=== PATIENT | male | born 1950 | race Caucasian/White ===

== ENCOUNTER 2021-07-30 18:10 | Emergency (ER) | payer MEDICARE ==
[2021-07-30] MEDS ORDERED: Bacitracin Oint 1 GM U/D Packet TOP ONE (18:27)
[2021-07-30] MEDS ORDERED: Sodium Chloride 0.9% 10 ML Syringe FLUSH PRN (19:14)
[2021-07-30] MEDS ORDERED: ceFAZolin 2 GM in Premix Bag 1 BAG IV ONE (19:38)
--- NOTE | 2021-07-30 20:23 | EDM.PDOC ---
ED HPI GENERAL MEDICAL PROBLEM - General Chief Complaint: Laceration Stated Complaint: L HAND LACERATION Time Seen by Provider: 07/30/21 18:27 Source of Information: Reports: Patient History Limitations: Reports: No Limitations - History of Present Illness INITIAL COMMENTS - FREE TEXT/NARRATIVE: Stefano is a 70-year-old male presenting to the ED for evaluation of a deep laceration to the dorsal left thumb starting at the PIP and extending to the anatomic snuffbox. The patient was in the process of trying to cut the throat of a deer that he had shot and apparently the deer was not yet and reared up causing can to lacerate the thumb instead of the neck of the deer. Patient is up-to-date with his tetanus with the last being given in May 2019. He is on an aspirin a day as well as carvedilol, Crestor and lisinopril. He is unable to extend the thumb likely due to a laceration through the extensor tendon. Denies any distal numbness and has good capillary refill. Bleeding is currently controlled. - Related Data Allergies Allergy/AdvReac Type Severity Reaction Status Date / Time No Known Allergies Allergy Verified 07/30/21 19:37 Home Meds: Home Meds *Carvedilol 1 tab PO DAILY 07/30/21 [History] *Crestor 1 tab PO DAILY 07/30/21 [History] *Risperdal 1 tab PO DAILY 07/30/21 [History] Aspirin [Ecotrin EC] 81 mg PO DAILY 07/30/21 [History] Past Medical History HEENT History: Reports: Impaired Vision Cardiovascular History: Reports: High Cholesterol, Hypertension Hematologic History: Reports: Anticoagulation Therapy Social & Family History - Tobacco Use Tobacco Use Status *Q: Never Tobacco User ED ROS GENERAL - Review of Systems Review Of Systems: See Below Constitutional: Reports: No Symptoms Musculoskeletal: Reports: Hand Pain (Left hand pain) Skin: Reports: Wound (Deep laceration measuring 4.7 cm on the dorsal left thumb from the PIP to the anatomic snuffbox) Neurological: Reports: No Symptoms ED EXAM, SKIN/RASH Exam: See Below Exam Limited By: No Limitations General Appearance: Alert, No Apparent Distress Peripheral Pulses: 2+: Radial (L) Neurological: Alert, Oriented, Normal Cognition, No Motor/Sensory Deficits Psychiatric: Normal Affect, Normal Mood Skin: Wound/Incision (4.7 cm laceration on the dorsal left thumb from the PIP to the anatomic snuffbox. I do see the distal segment of the extensor tendon but do not find the proximal segment as it is retracted into the thenar muscle. The patient is not able to extend the thumb but does have good flexion. ) Location, Skin: Upper Extremity, Left Characteristics: Linear ED SKIN PROCEDURES - Laceration/Wound Repair Left Digit - 1st (Thumb) Appearance: Muscle, Linear, Mildly Contaminated Distal NVT: Neuro & Vascular Intact, Other (Laceration through the extensor tendon of the thumb) Anesthetic Type: Local Local Anesthesia - Lidocaine (Xylocaine): 1% Plain Local Anesthetic Volume: 4cc Skin Prep: Chlorhexidine (Hibiciens) (Both soaked the hand in Hibiclens and then scrubbed it out with a surgical scrub brush and Hibiclens) Saline Irrigation (cc's): 1,000 Exploration/Debridement/Repair: Wound Explored, In a Bloodless Field, Explored to Base Closed with: Sutures Lac/Wound length In cm: 4.7 Suture Size: 4-0 # of Sutures: 7 Suture Type: Nylon, Interrupted Sterile Dressing Applied: Provider Tetanus Status Addressed: Yes Complications: Yes Complication Description: The extensor tendon of the thumb was lacerated through. I was able to find the distal segment but not the proximal segment. - Splinting Left Thumb Splint Site: Left thumb to immobilize the laceration through the extensor tendon Pre-Procedure NV Status: Normal Post-Procedure NV Status: Normal Splint Material: Velcro Splint Design: Thumb Spica Applied & Form Fitted By: Provider Provider Post-Splint Application NV Check: NV Status Normal, Good Position Complications: No Course - Vital Signs Last Recorded V/S: Last Vital Signs Temp 36.8 C 07/30/21 19:30 Pulse 65 07/30/21 19:30 Resp 16 07/30/21 19:30 BP 122/70 07/30/21 19:30 Pulse Ox 96 07/30/21 19:30 - Orders/Labs/Meds Orders: Active Orders 24 hr Category Date Time Status Sodium Chloride 0.9% [Saline Flush] Med 07/30/21 19:14 Active 10 ml FLUSH ASDIRECTED PRN Saline Lock Insert [OM.PC] Routine Oth 07/30/21 19:14 Ordered Medication Orders Sodium Chloride (Sodium Chloride 0.9% 10 Ml Syringe) 10 ml FLUSH ASDIRECTED PRN PRN Reason: Keep Vein Open Last Admin: 07/30/21 19:47 Dose: 10 ml Documented by: KRISTYN Meds: Medications Generic Name Dose Route Start Last Admin Trade Name Khloe PRN Reason Stop Dose Admin Sodium Chloride 10 ml 07/30/21 19:14 07/30/21 19:47 Sodium Chloride 0.9% 10 Ml Syringe FLUSH 10 ml ASDIRECTED PRN Administration Keep Vein Open Discontinued Medications Generic Name Dose Route Start Last Admin Trade Name Khloe PRN Reason Stop Dose Admin Bacitracin 1 dose 07/30/21 18:27 07/30/21 19:37 Bacitracin Oint 1 Gm U/D Packet TOP 07/30/21 18:28 1 dose ONETIME ONE Administration Cefazolin Sodium/Dextrose 2 gm 50 mls @ 100 mls/hr 07/30/21 19:38 07/30/21 19:47 / Premix IV 07/30/21 20:07 100 mls/hr ONETIME ONE Administration Lidocaine HCl 5 ml 07/30/21 18:27 07/30/21 19:37 Lidocaine 1% 5 Ml Sdv INJECT 07/30/21 18:28 5 ml ONETIME ONE Administration - Re-Assessments/Exams Free Text/Narrative Re-Assessment/Exam: 07/30/21 19:27 I discussed the case with Dr. Clemens, hand surgeon in orthopedics at [facility] who recommended the following treatment for the patient. 1. Ancef 2 g IV to initiate antibiotics. 2. inject the wound with a generous amount of local anesthetic 3. Soak the hand in very soapy water. We used Hibiclens and warm water soaking the hand for 5 to 10 minutes. I then scrubbed the hand with Hibiclens and a surgical scrub brush for 5 minutes and allowed it to soak for an additional 5 minutes. 4. He recommended putting the patient on Keflex 500 mg 4 times daily for least 3 days. I gave the patient a prescription for 7 days. 5. He recommended setting the patient up with Ultram for pain control. The patient was given a prescription for 50 mg number 15 tablets. 6. He advised the patient not drive. 7. He recommended the patient call his office Monday morning and request an appointment with him with the number of [phone] to be seen next week at which time he will repair the tendon. 8. He recommended closing the wound with nylon with loose approximation of the edges and putting the patient in a thumb spica splint. These items were carried out and the patient was informed of the plan. Departure - Departure Time of Disposition: 20:20 Disposition: Home, Self-Care 01 Clinical Impression: Laceration of left thumb with tendon involvement Qualifiers: Encounter type: initial encounter Qualified Code(s): S61.012A - Laceration without foreign body of left thumb without damage to nail, initial encounter - Discharge Information Instructions: Laceration Care, Adult, [id number], Sutures, Mellisa, or A dhesive Wound Closure, [id number] Referrals: Jacqueline Maya DO [Primary Care Provider] - Forms: ED Department Discharge Care Plan Goals: You sustained a laceration through the back of the left thumb going through the extensor tendon which is preventing you to be able to lift her thumb up. I discussed the case with Dr. Clemens from orthopedics at [facility]. He is a hand surgeon specializing in the repair of this injury. He would like you to call his office on Monday at [phone] to schedule an appointment. He gave me recommendations on not only the repair but also treatment of you until he is able to see you. Please wear the splint to immobilize the thumb until you see him. You may take it off to shower. Please keep the wound clean and dry with a light coating to triple antibiotic ointment or Neosporin on it daily. Over the next 24 hours, do not get the wound wet. Please keep the curr ent dressing in place unless it becomes saturated with blood. Should you develop any fever or chills we should see you back immediately. I am sending you home on an antibiotic called cephalexin or Keflex which she will take 500 mg 4 times a day for 7 days. This has been sent out to the [facility]. I have also sent out a prescription for pain medicine with Ultra. You may take that as directed for pain. Certainly if you have any questions call us back. Sepsis Event Note (ED) - Evaluation Sepsis Screening Result: No Definite Risk - Focused Exam Vital Signs: Vital Signs Temp Pulse Resp BP Pulse Ox 07/30/21 19:30 36.8 C 65 16 122/70 96 07/30/21 18:22 36.8 C 65 16 122/70 96 - Problem List & Annotations (1) Laceration of left thumb with tendon involvement SNOMED Code(s): 00001051, [id number] Code(s): S61.012A - LACERATION W/O FB OF LEFT THUMB W/O DAMAGE TO NAIL, INIT Status: Acute Priority: Medium Current Visit: Yes Qualifiers: Encounter type: initial encounter Qualified Code(s): S61.012A - Laceration without foreign body of left thumb without damage to nail, initial encounter - Problem List Review Problem List Initiated/Reviewed/Updated: Yes - My Orders Last 24 Hours: My Active Orders 07/30/21 19:14 Sodium Chloride 0.9% [Saline Flush] 10 ml FLUSH ASDIRECTED PRN Saline Lock Insert [OM.PC] Routine - Assessment/Plan Last 24 Hours: My Active Orders 07/30/21 19:14 Sodium Chloride 0.9% [Saline Flush] 10 ml FLUSH ASDIRECTED PRN Saline Lock Insert [OM.PC] Routine
== END 2021-07-30 20:44 | disposition home or self-care (01) ==
LOC: JP.ED 18:10
DX: S61.012A Laceration without foreign body of left thumb without damage to nail, initial encounter (principal); E78.00 Pure hypercholesterolemia, unspecified; I10 Essential (primary) hypertension; Z79.82 Long term (current) use of aspirin; Z79.899 Other long term (current) drug therapy; W26.8XXA Contact with other sharp object(s), not elsewhere classified, initial encounter
CPT/HCPCS: 12002; 96365; 99282; J0690